=== PATIENT | male | born 1960 | race African-American/Black ===

== ENCOUNTER 2017-05-26 14:15 | Inpatient (IN) | payer MEDICARE, MEDICAID ==
[~2017-05-26] VITALS: Ht 188 cm; Wt 251.7 kg
[2017-05-26] MEDS: IPRATROPIUM/ALBUTEROL 0.5-3(2.5)MG/3ML NEB HHN SCH ×2 (05:15→19:50)
[~2017-05-26 14:15] MED LIST: ALLO300T2 PO; AMLO10TA80 PO; ASPI-1159 PO; CARV25TA47 PO; CHOL20004 PO; CLON0.3T PO; FLUT10SP BOTHNSTRLS; FURO40TA5 PO; GABA-290 PO; HYDR100T26 PO; HYDR4TAB56 PO; INSU3INS6 SUBCUT; ISOS20TA8 PO; LIRA0.6P2 SUBCUT; LOSA100T14 PO; MORP100T20 PO; POTA10TA15 PO; PRAZ5CAP PO; SIMV20TA6 PO
[2017-05-26 15:00] VITALS: BP 115/73
[2017-05-26 16:30] VITALS: BP 115/73
[2017-05-26] MEDS ORDERED: ONDANSETRON HCL 4MG/2ML VIAL IV PRN (16:45)
[2017-05-26] MEDS ORDERED: CLONIDINE 0.1MG TABLET PO PRN (16:45)
[2017-05-26] MEDS ORDERED: DEXTROSE 50% WATER 50ML SYRINGE IV PRN (16:45)
[2017-05-26] MEDS: INSULIN LISPRO 100 UNITS/ML SUBCUT SCH ×2 (17:00→21:00)
[2017-05-26] MEDS: ISOSORBIDE DINITRATE 20MG TABLET PO SCH (17:00)
[2017-05-26] MEDS: FUROSEMIDE 40MG/4ML VIAL IVP SCH (17:39)
[2017-05-26] MEDS: BLOOD SUGAR DIAGNOSTIC STRIP TEST SCH ×2 (17:39→21:36)
[2017-05-26] MEDS: POTASSIUM CHLORIDE 20MEQ TABLET SR PO SCH ×2 (17:39→21:00)
[2017-05-26] MEDS ORDERED: HYDROMORPHONE HCL/PF 4MG/ML CPJ IV PRN (18:00)
[2017-05-26] MEDS: METOCLOPRAMIDE HCL 10MG TABLET PO SCH ×2 (18:28→22:22)
[2017-05-26] MEDS: SIMETHICONE 80MG TABLET CHEW PO SCH (18:28)
[2017-05-26 20:00] VITALS: BP 138/66
[2017-05-26] MEDS: HYDROMORPHONE HCL 2MG TABLET PO PRN (20:13)
[2017-05-26] MEDS ORDERED: MORPHINE SULFATE 30MG TABLET SR PO SCH ×2 (21:00)
[2017-05-26] MEDS: MORPHINE SULFATE 30MG TABLET SR PO SCH (21:23)
[2017-05-26] MEDS: ATORVASTATIN CALCIUM 20MG TABLET PO SCH (21:24)
[2017-05-26] MEDS: CARVEDILOL 25MG TABLET PO SCH (21:24)
[2017-05-26] MEDS: FAMOTIDINE 20MG TABLET PO SCH (21:24)
[2017-05-26] MEDS: ENOXAPARIN 40MG/0.4ML SYR SUBCUT SCH (21:25)
[2017-05-26] MEDS: POLYETHYLENE GLYCOL 3350 (17GM) 1 DOSE PACK PO SCH (21:30)
[2017-05-26] MEDS ORDERED: METOCLOPRAMIDE HCL 10MG/2ML VIAL IV SCH (22:00)
[2017-05-26] MEDS: GABAPENTIN 300MG CAPSULE PO SCH (22:21)
[2017-05-26] MEDS: HYDRALAZINE HCL 100MG TABLET PO SCH (22:23)
[2017-05-27] MEDS: HYDROMORPHONE HCL 2MG TABLET PO PRN ×3 (01:59→17:47)
[2017-05-27] MEDS: GABAPENTIN 300MG CAPSULE PO SCH ×3 (06:28→21:25)
[2017-05-27] MEDS: HYDRALAZINE HCL 100MG TABLET PO SCH ×3 (06:28→21:55)
[2017-05-27] MEDS: MORPHINE SULFATE 30MG TABLET SR PO SCH ×3 (06:29→21:56)
[2017-05-27] MEDS: METOCLOPRAMIDE HCL 10MG TABLET PO SCH ×3 (06:29→21:26)
[2017-05-27] MEDS: BLOOD SUGAR DIAGNOSTIC STRIP TEST SCH ×4 (06:32→21:24)
[2017-05-27 06:44] LABS: BASOPHILS % 0.6 % (0.0-2.0); EOSINOPHILS % 2.6 % (0.0-5.0); HEMATOCRIT. 36.3 % (42.0-52.0); HEMOGLOBIN. 12.2 g/dL (14.0-18.0); LYMPHOCYTES % 17.1 % (20.0-50.0); MEAN CORPUSCULAR HEMOGLOBIN 30.2 pg (28.0-32.0); MEAN PLATELET VOLUME 7.4 fl (7.4-10.4); MONOCYTES % 10.2 % (2.0-8.0); NEUTROPHILS % 69.5 % (40.0-76.0); PLATELET 391 x1000/uL (130-400); RED BLOOD CELL COUNT 4.03 mill/uL (4.7-6.1); RED CELL DISTRIBUTION WIDTH 15.3 % (11.6-14.6)
[2017-05-27] MEDS: INSULIN LISPRO 100 UNITS/ML SUBCUT SCH ×4 (06:57→21:00)
[2017-05-27] MEDS: FUROSEMIDE 40MG/4ML VIAL IVP SCH ×2 (07:10→17:47)
[2017-05-27 07:42] LABS: CHLORIDE 99 mEq/L (98-107)
[2017-05-27] MEDS: IPRATROPIUM/ALBUTEROL 0.5-3(2.5)MG/3ML NEB HHN SCH ×6 (08:00→21:27)
[2017-05-27 08:43] VITALS: BP 154/72
[2017-05-27 08:50] LABS: CARBON DIOXIDE 25 mEq/L (21-32); PREALBUMIN 19.3 mg/dL (20.0-40.0)
[2017-05-27] MEDS: ALLOPURINOL 300 MG TABLET PO SCH (09:03)
[2017-05-27] MEDS: POTASSIUM CHLORIDE 20MEQ TABLET SR PO SCH ×2 (09:03→13:39)
[2017-05-27] MEDS: DOCUSATE SODIUM 100MG CAPSULE PO SCH ×2 (09:03→17:45)
[2017-05-27] MEDS: ENOXAPARIN 40MG/0.4ML SYR SUBCUT SCH ×2 (09:03→21:24)
[2017-05-27] MEDS: SIMETHICONE 80MG TABLET CHEW PO SCH ×4 (09:03→17:00)
[2017-05-27] MEDS: LOSARTAN POTASSIUM 100 MG TABLET PO SCH (09:04)
[2017-05-27] MEDS: NIFEDIPINE XL 60MG TAB PO SCH (09:04)
[2017-05-27] MEDS: ISOSORBIDE DINITRATE 20MG TABLET PO SCH ×3 (09:04→17:46)
[2017-05-27] MEDS: ASPIRIN 325MG EC TABLET PO SCH (09:04)
[2017-05-27] MEDS: FAMOTIDINE 20MG TABLET PO SCH ×2 (09:04→21:24)
[2017-05-27] MEDS: LIDOCAINE 5% PATCH TOP SCH (09:05)
[2017-05-27] MEDS: CARVEDILOL 25MG TABLET PO SCH ×2 (09:05→21:23)
[2017-05-27] MEDS: VITAMINS A AND D OINT TUBE TOP SCH (17:52)
[2017-05-27 20:14] VITALS: BP 104/61
[2017-05-27] MEDS: POLYETHYLENE GLYCOL 3350 (17GM) 1 DOSE PACK PO SCH (21:00)
[2017-05-27] MEDS: ATORVASTATIN CALCIUM 20MG TABLET PO SCH (21:24)
[2017-05-27] MEDS: PANTOT AC/MIN OIL/PET HY-PHL OINT 52.5GM (AQUAPHOR) TOP SCH (21:25)
[2017-05-28] MEDS: IPRATROPIUM/ALBUTEROL 0.5-3(2.5)MG/3ML NEB HHN SCH ×7 (04:00→20:00)
[2017-05-28] MEDS: HYDRALAZINE HCL 100MG TABLET PO SCH ×3 (06:00→22:00)
[2017-05-28] MEDS: FUROSEMIDE 40MG/4ML VIAL IVP SCH ×2 (06:25→17:02)
[2017-05-28] MEDS: BLOOD SUGAR DIAGNOSTIC STRIP TEST SCH ×4 (06:25→21:57)
[2017-05-28] MEDS: MORPHINE SULFATE 30MG TABLET SR PO SCH ×3 (06:25→22:32)
[2017-05-28] MEDS: METOCLOPRAMIDE HCL 10MG TABLET PO SCH ×3 (06:25→21:58)
[2017-05-28] MEDS: GABAPENTIN 300MG CAPSULE PO SCH ×3 (06:25→21:56)
[2017-05-28 06:32] LABS: BASOPHILS % 0.5 % (0.0-2.0); EOSINOPHILS % 2.5 % (0.0-5.0); HEMOGLOBIN. 12.4 g/dL (14.0-18.0); LYMPHOCYTES % 21.6 % (20.0-50.0); MEAN CORPUSCULAR HEMOGLOBIN 30.2 pg (28.0-32.0); MEAN CORPUSCULAR VOLUME 90.1 fL (80.0-94.0); MEAN PLATELET VOLUME 7.5 fl (7.4-10.4); MONOCYTES % 10.1 % (2.0-8.0); NEUTROPHILS % 65.3 % (40.0-76.0); PLATELET 375 x1000/uL (130-400); RED BLOOD CELL COUNT 4.11 mill/uL (4.7-6.1); RED CELL DISTRIBUTION WIDTH 15.2 % (11.6-14.6)
[2017-05-28 06:50] LABS: CHLORIDE 98 mEq/L (98-107)
[2017-05-28] MEDS: INSULIN LISPRO 100 UNITS/ML SUBCUT SCH ×4 (06:56→22:07)
[2017-05-28 07:06] LABS: CARBON DIOXIDE 29 mEq/L (21-32)
[2017-05-28 07:34] LABS: TOTAL IRON BINDING CAPACITY 204 ug/dL (250-450)
[2017-05-28 07:36] LABS: PHOSPHORUS 3.6 mg/dL (2.5-4.9)
[2017-05-28 08:00] VITALS: BP 136/68
[2017-05-28] MEDS ORDERED: POTASSIUM CHLORIDE 20MEQ TABLET SR PO SCH (09:00)
[2017-05-28] MEDS: DOCUSATE SODIUM 100MG CAPSULE PO SCH ×2 (10:05→17:01)
[2017-05-28] MEDS: CARVEDILOL 25MG TABLET PO SCH ×2 (10:06→21:57)
[2017-05-28] MEDS: SIMETHICONE 80MG TABLET CHEW PO SCH ×3 (10:06→16:26)
[2017-05-28] MEDS: POTASSIUM CHLORIDE 20MEQ TABLET SR PO SCH (10:06)
[2017-05-28] MEDS: FAMOTIDINE 20MG TABLET PO SCH ×2 (10:07→21:00)
[2017-05-28] MEDS: ISOSORBIDE DINITRATE 20MG TABLET PO SCH ×3 (10:07→17:02)
[2017-05-28] MEDS: NIFEDIPINE XL 60MG TAB PO SCH (10:07)
[2017-05-28] MEDS: ALLOPURINOL 300 MG TABLET PO SCH (10:07)
[2017-05-28] MEDS: ASPIRIN 325MG EC TABLET PO SCH (10:07)
[2017-05-28] MEDS: LOSARTAN POTASSIUM 100 MG TABLET PO SCH (10:07)
[2017-05-28] MEDS: PANTOT AC/MIN OIL/PET HY-PHL OINT 52.5GM (AQUAPHOR) TOP SCH ×2 (10:08→22:08)
[2017-05-28] MEDS: ENOXAPARIN 40MG/0.4ML SYR SUBCUT SCH ×2 (10:08→21:58)
[2017-05-28] MEDS: LIDOCAINE 5% PATCH TOP SCH (10:09)
[2017-05-28] MEDS: VITAMINS A AND D OINT TUBE TOP SCH ×3 (10:10→17:02)
[2017-05-28] MEDS: HYDROCODONE/ACETAMINOPHEN 5/325MG TABLET PO PRN (11:18)
[2017-05-28] MEDS: HYDROMORPHONE HCL 2MG TABLET PO PRN (19:06)
[2017-05-28 20:00] VITALS: BP 117/54
[2017-05-28] MEDS: POLYETHYLENE GLYCOL 3350 (17GM) 1 DOSE PACK PO SCH (21:00)
[2017-05-28] MEDS: ATORVASTATIN CALCIUM 20MG TABLET PO SCH (21:57)
[2017-05-28] MEDS: CLOTRIMAZOLE/BETAMETHASONE 1/0.05% CREAM 15GM TOP SCH (22:08)
[2017-05-29] MEDS: HYDROCODONE/ACETAMINOPHEN 5/325MG TABLET PO PRN ×3 (01:18→18:46)
[2017-05-29] MEDS: MORPHINE SULFATE 30MG TABLET SR PO SCH ×2 (05:00→15:01)
[2017-05-29] MEDS: HYDRALAZINE HCL 100MG TABLET PO SCH (06:00)
[2017-05-29] MEDS: METOCLOPRAMIDE HCL 10MG TABLET PO SCH ×3 (06:00→21:42)
[2017-05-29] MEDS: BLOOD SUGAR DIAGNOSTIC STRIP TEST SCH ×4 (06:20→21:47)
[2017-05-29 06:25] LABS: EOSINOPHILS % 3.3 % (0.0-5.0); HEMATOCRIT. 36.5 % (42.0-52.0); HEMOGLOBIN. 11.8 g/dL (14.0-18.0); LYMPHOCYTES % 22.9 % (20.0-50.0); MEAN CORPUSCULAR HEMOGLOBIN 29.4 pg (28.0-32.0); MEAN CORPUSCULAR VOLUME 90.8 fL (80.0-94.0); MEAN PLATELET VOLUME 7.6 fl (7.4-10.4); MONOCYTES % 13.4 % (2.0-8.0); NEUTROPHILS % 59.4 % (40.0-76.0); PLATELET 318 x1000/uL (130-400); RED BLOOD CELL COUNT 4.01 mill/uL (4.7-6.1); RED CELL DISTRIBUTION WIDTH 15.3 % (11.6-14.6)
[2017-05-29] MEDS: FUROSEMIDE 40MG/4ML VIAL IVP SCH ×2 (06:47→17:20)
[2017-05-29] MEDS: GABAPENTIN 300MG CAPSULE PO SCH (06:47)
[2017-05-29] MEDS: INSULIN LISPRO 100 UNITS/ML SUBCUT SCH ×4 (07:05→21:00)
[2017-05-29] MEDS: IPRATROPIUM/ALBUTEROL 0.5-3(2.5)MG/3ML NEB HHN SCH (07:50)
[2017-05-29 08:00] VITALS: BP 125/72
[2017-05-29] MEDS: CARVEDILOL 25MG TABLET PO SCH ×2 (08:19→21:00)
[2017-05-29] MEDS: DOCUSATE SODIUM 100MG CAPSULE PO SCH ×3 (08:19→16:10)
[2017-05-29] MEDS: LOSARTAN POTASSIUM 100 MG TABLET PO SCH (08:19)
[2017-05-29] MEDS: POTASSIUM CHLORIDE 20MEQ TABLET SR PO SCH ×2 (08:19→17:19)
[2017-05-29] MEDS: ALLOPURINOL 300 MG TABLET PO SCH (08:19)
[2017-05-29] MEDS: ENOXAPARIN 40MG/0.4ML SYR SUBCUT SCH ×2 (08:20→21:45)
[2017-05-29] MEDS: ASPIRIN 325MG EC TABLET PO SCH (08:20)
[2017-05-29] MEDS: HYDROMORPHONE HCL 2MG TABLET PO PRN (08:20)
[2017-05-29] MEDS: PANTOT AC/MIN OIL/PET HY-PHL OINT 52.5GM (AQUAPHOR) TOP SCH ×2 (08:21→21:51)
[2017-05-29] MEDS: VITAMINS A AND D OINT TUBE TOP SCH ×3 (08:21→17:20)
[2017-05-29] MEDS: LIDOCAINE 5% PATCH TOP SCH (08:21)
[2017-05-29] MEDS: CLOTRIMAZOLE/BETAMETHASONE 1/0.05% CREAM 15GM TOP SCH ×2 (08:21→21:51)
[2017-05-29 08:29] LABS: CHLORIDE 101 mEq/L (98-107)
[2017-05-29 08:37] LABS: CARBON DIOXIDE 23 mEq/L (21-32)
[2017-05-29] MEDS: ISOSORBIDE DINITRATE 20MG TABLET PO SCH ×3 (08:43→17:20)
[2017-05-29] MEDS: SIMETHICONE 80MG TABLET CHEW PO SCH (08:44)
[2017-05-29] MEDS: FAMOTIDINE 20MG TABLET PO SCH ×2 (08:44→21:41)
[2017-05-29] MEDS: NIFEDIPINE XL 60MG TAB PO SCH (08:44)
[2017-05-29] MEDS ORDERED: LACTULOSE 20G/30ML UDC PO SCH (10:03)
[2017-05-29] MEDS ORDERED: LACTULOSE 20G/30ML UDC PO PRN (11:15)
[2017-05-29] MEDS: NIFEDIPINE XL 30MG TAB PO SCH (11:49)
[2017-05-29] MEDS: GABAPENTIN 400MG CAPSULE PO SCH ×2 (15:00→21:41)
[2017-05-29] MEDS: HYDRALAZINE HCL 50MG TABLET PO SCH ×2 (15:01→22:00)
[2017-05-29 20:00] VITALS: BP 126/70
[2017-05-29] MEDS: POLYETHYLENE GLYCOL 3350 (17GM) 1 DOSE PACK PO SCH (21:00)
[2017-05-29] MEDS: ATORVASTATIN CALCIUM 20MG TABLET PO SCH (21:41)
[2017-05-30] MEDS: MORPHINE SULFATE 30MG TABLET SR PO SCH ×5 (00:47→21:14)
[2017-05-30] MEDS: HYDROCODONE/ACETAMINOPHEN 5/325MG TABLET PO PRN ×2 (04:23→10:59)
[2017-05-30] MEDS: HYDRALAZINE HCL 50MG TABLET PO SCH (06:00)
[2017-05-30] MEDS: BLOOD SUGAR DIAGNOSTIC STRIP TEST SCH ×4 (06:02→21:20)
[2017-05-30] MEDS: GABAPENTIN 400MG CAPSULE PO SCH ×3 (06:44→22:26)
[2017-05-30] MEDS: METOCLOPRAMIDE HCL 10MG TABLET PO SCH ×3 (06:44→22:26)
[2017-05-30] MEDS: FUROSEMIDE 40MG/4ML VIAL IVP SCH (06:45)
[2017-05-30 07:24] LABS: BASOPHILS % 0.4 % (0.0-2.0); EOSINOPHILS % 2.2 % (0.0-5.0); HEMATOCRIT. 37.9 % (42.0-52.0); HEMOGLOBIN. 12.5 g/dL (14.0-18.0); LYMPHOCYTES % 16.3 % (20.0-50.0); MEAN CORPUSCULAR HEMOGLOBIN 29.8 pg (28.0-32.0); MEAN PLATELET VOLUME 7.7 fl (7.4-10.4); MONOCYTES % 12.4 % (2.0-8.0); NEUTROPHILS % 68.7 % (40.0-76.0); PLATELET 301 x1000/uL (130-400); RED BLOOD CELL COUNT 4.21 mill/uL (4.7-6.1); RED CELL DISTRIBUTION WIDTH 15.4 % (11.6-14.6)
[2017-05-30] MEDS: INSULIN LISPRO 100 UNITS/ML SUBCUT SCH ×4 (07:44→21:00)
[2017-05-30 08:00] VITALS: BP 136/69
[2017-05-30] MEDS: DOCUSATE SODIUM 100MG CAPSULE PO SCH ×2 (09:00→16:31)
[2017-05-30] MEDS: LIDOCAINE 5% PATCH TOP SCH ×2 (09:00→10:52)
[2017-05-30] MEDS: FAMOTIDINE 20MG TABLET PO SCH ×3 (09:00→21:14)
[2017-05-30 09:03] LABS: CHLORIDE 98 mEq/L (98-107)
[2017-05-30] MEDS: POTASSIUM CHLORIDE 20MEQ TABLET SR PO SCH ×2 (10:49→16:31)
[2017-05-30] MEDS: ASPIRIN 325MG EC TABLET PO SCH (10:49)
[2017-05-30] MEDS: NIFEDIPINE XL 30MG TAB PO SCH (10:49)
[2017-05-30] MEDS: CARVEDILOL 25MG TABLET PO SCH (10:49)
[2017-05-30 10:50] LABS: CARBON DIOXIDE 26 mEq/L (21-32)
[2017-05-30] MEDS: LOSARTAN POTASSIUM 100 MG TABLET PO SCH (10:50)
[2017-05-30] MEDS: ISOSORBIDE DINITRATE 20MG TABLET PO SCH ×3 (10:50→22:28)
[2017-05-30] MEDS: ALLOPURINOL 300 MG TABLET PO SCH (10:50)
[2017-05-30] MEDS: ENOXAPARIN 40MG/0.4ML SYR SUBCUT SCH ×2 (10:51→21:15)
[2017-05-30] MEDS: PANTOT AC/MIN OIL/PET HY-PHL OINT 52.5GM (AQUAPHOR) TOP SCH ×2 (10:52→21:22)
[2017-05-30] MEDS: CLOTRIMAZOLE/BETAMETHASONE 1/0.05% CREAM 15GM TOP SCH ×2 (10:52→21:22)
[2017-05-30] MEDS: VITAMINS A AND D OINT TUBE TOP SCH ×3 (10:59→16:31)
[2017-05-30] MEDS ORDERED: CLONIDINE 0.1MG TABLET PO PRN (13:30)
[2017-05-30] MEDS: HYDRALAZINE HCL 25MG TABLET PO SCH ×2 (14:00→22:27)
[2017-05-30] MEDS ORDERED: HYDRALAZINE HCL 50MG TABLET PO SCH (14:00)
[2017-05-30] MEDS: LACTULOSE 20G/30ML UDC PO SCH ×2 (16:31→21:15)
[2017-05-30 20:00] VITALS: BP 107/66
[2017-05-30 20:26] LABS: FOLIC ACID (FOLATE) SERUM 8.3 ng/mL (>5.38)
[2017-05-30] MEDS: ATORVASTATIN CALCIUM 20MG TABLET PO SCH (21:14)
[2017-05-30] MEDS: POLYETHYLENE GLYCOL 3350 (17GM) 1 DOSE PACK PO SCH (21:15)
[2017-05-30] MEDS: CARVEDILOL 12.5MG TABLET PO SCH (22:28)
[2017-05-31] MEDS: HYDROCODONE/ACETAMINOPHEN 5/325MG TABLET PO PRN ×2 (02:15→10:37)
[2017-05-31] MEDS: MORPHINE SULFATE 30MG TABLET SR PO SCH ×2 (05:33→14:37)
[2017-05-31] MEDS: METOCLOPRAMIDE HCL 10MG TABLET PO SCH ×3 (05:33→22:00)
[2017-05-31] MEDS: HYDRALAZINE HCL 25MG TABLET PO SCH ×3 (06:00→22:13)
[2017-05-31] MEDS: BLOOD SUGAR DIAGNOSTIC STRIP TEST SCH ×4 (06:35→21:00)
[2017-05-31] MEDS: INSULIN LISPRO 100 UNITS/ML SUBCUT SCH ×4 (06:36→21:00)
[2017-05-31] MEDS: GABAPENTIN 400MG CAPSULE PO SCH ×3 (06:42→22:12)
[2017-05-31 07:21] LABS: BASOPHILS % 0.8 % (0.0-2.0); HEMATOCRIT. 36.8 % (42.0-52.0); HEMOGLOBIN. 12.1 g/dL (14.0-18.0); LYMPHOCYTES % 21.4 % (20.0-50.0); MEAN CORPUSCULAR VOLUME 90.9 fL (80.0-94.0); MEAN PLATELET VOLUME 8.4 fl (7.4-10.4); MONOCYTES % 13.1 % (2.0-8.0); NEUTROPHILS % 62.7 % (40.0-76.0); PLATELET 278 x1000/uL (130-400); RED BLOOD CELL COUNT 4.05 mill/uL (4.7-6.1); RED CELL DISTRIBUTION WIDTH 15.5 % (11.6-14.6)
[2017-05-31 08:00] VITALS: BP 118/70
[2017-05-31 08:38] LABS: CARBON DIOXIDE 26 mEq/L (21-32); CHLORIDE 97 mEq/L (98-107)
[2017-05-31] MEDS ORDERED: AMLODIPINE 5MG TABLET PO SCH (09:00)
[2017-05-31] MEDS: FAMOTIDINE 20MG TABLET PO SCH ×3 (09:16→22:13)
[2017-05-31] MEDS: ASPIRIN 325MG EC TABLET PO SCH (09:16)
[2017-05-31] MEDS: LACTULOSE 20G/30ML UDC PO SCH ×6 (09:16→21:00)
[2017-05-31] MEDS: POTASSIUM CHLORIDE 20MEQ TABLET SR PO SCH (09:16)
[2017-05-31] MEDS: ENOXAPARIN 40MG/0.4ML SYR SUBCUT SCH ×2 (09:16→22:14)
[2017-05-31] MEDS: DOCUSATE SODIUM 100MG CAPSULE PO SCH ×2 (09:16→17:23)
[2017-05-31] MEDS: VITAMINS A AND D OINT TUBE TOP SCH ×3 (09:17→17:23)
[2017-05-31] MEDS: LIDOCAINE 5% PATCH TOP SCH (09:17)
[2017-05-31] MEDS: PANTOT AC/MIN OIL/PET HY-PHL OINT 52.5GM (AQUAPHOR) TOP SCH ×2 (09:17→22:29)
[2017-05-31] MEDS: ALLOPURINOL 300 MG TABLET PO SCH (09:18)
[2017-05-31] MEDS: CLOTRIMAZOLE/BETAMETHASONE 1/0.05% CREAM 15GM TOP SCH ×2 (09:18→22:30)
[2017-05-31] MEDS: LOSARTAN POTASSIUM 50 MG TABLET PO SCH (09:19)
[2017-05-31] MEDS: ISOSORBIDE DINITRATE 20MG TABLET PO SCH ×2 (09:19→22:13)
[2017-05-31] MEDS: CARVEDILOL 12.5MG TABLET PO SCH ×2 (09:19→22:12)
[2017-05-31] MEDS ORDERED: BISACODYL 10MG SUPP PR PRN (15:00)
[2017-05-31] MEDS ORDERED: CYANOCOBALAMIN 1000MCG/ML VIAL IM NR (15:30)
[2017-05-31] MEDS ORDERED: SORBITOL 70% SOLN 30ML PO NR (16:30)
[2017-05-31 20:00] VITALS: BP 123/66
[2017-05-31] MEDS: POLYETHYLENE GLYCOL 3350 (17GM) 1 DOSE PACK PO SCH (21:00)
[2017-05-31] MEDS: ATORVASTATIN CALCIUM 20MG TABLET PO SCH (22:12)
[2017-06-01] MEDS: HYDROCODONE/ACETAMINOPHEN 5/325MG TABLET PO PRN ×4 (01:34→20:17)
[2017-06-01] MEDS: GABAPENTIN 400MG CAPSULE PO SCH ×3 (05:53→22:19)
[2017-06-01] MEDS: MORPHINE SULFATE 30MG TABLET SR PO SCH ×3 (05:54→22:20)
[2017-06-01] MEDS: HYDRALAZINE HCL 25MG TABLET PO SCH ×2 (05:54→13:39)
[2017-06-01] MEDS: METOCLOPRAMIDE HCL 10MG TABLET PO SCH ×4 (05:56→22:00)
[2017-06-01] MEDS ORDERED: MORPHINE SULFATE 30MG TABLET SR PO SCH (06:00)
[2017-06-01] MEDS: BLOOD SUGAR DIAGNOSTIC STRIP TEST SCH ×4 (06:19→20:23)
[2017-06-01] MEDS: INSULIN LISPRO 100 UNITS/ML SUBCUT SCH ×4 (06:32→20:28)
[2017-06-01 06:56] LABS: BASOPHILS % 1.2 % (0.0-2.0); HEMATOCRIT. 37.9 % (42.0-52.0); HEMOGLOBIN. 12.5 g/dL (14.0-18.0); LYMPHOCYTES % 31.2 % (20.0-50.0); MEAN CORPUSCULAR HEMOGLOBIN 29.9 pg (28.0-32.0); MEAN CORPUSCULAR VOLUME 90.9 fL (80.0-94.0); MEAN PLATELET VOLUME 8.2 fl (7.4-10.4); MONOCYTES % 12.2 % (2.0-8.0); NEUTROPHILS % 52.4 % (40.0-76.0); PLATELET 293 x1000/uL (130-400); RED BLOOD CELL COUNT 4.17 mill/uL (4.7-6.1); RED CELL DISTRIBUTION WIDTH 15.5 % (11.6-14.6)
[2017-06-01 07:07] LABS: CARBON DIOXIDE 26 mEq/L (21-32); CHLORIDE 96 mEq/L (98-107)
[2017-06-01 08:00] VITALS: BP 132/74
[2017-06-01] MEDS: ENOXAPARIN 40MG/0.4ML SYR SUBCUT SCH ×2 (08:47→20:17)
[2017-06-01] MEDS: ALLOPURINOL 300 MG TABLET PO SCH (08:47)
[2017-06-01] MEDS: ASPIRIN 325MG EC TABLET PO SCH (08:48)
[2017-06-01] MEDS: LOSARTAN POTASSIUM 50 MG TABLET PO SCH (08:48)
[2017-06-01] MEDS: CARVEDILOL 12.5MG TABLET PO SCH (08:49)
[2017-06-01] MEDS: ISOSORBIDE DINITRATE 20MG TABLET PO SCH ×2 (08:50→20:17)
[2017-06-01] MEDS: VITAMINS A AND D OINT TUBE TOP SCH ×3 (08:52→16:14)
[2017-06-01] MEDS: PANTOT AC/MIN OIL/PET HY-PHL OINT 52.5GM (AQUAPHOR) TOP SCH ×2 (08:52→20:28)
[2017-06-01] MEDS: CLOTRIMAZOLE/BETAMETHASONE 1/0.05% CREAM 15GM TOP SCH ×2 (08:53→20:28)
[2017-06-01] MEDS: FAMOTIDINE 20MG TABLET PO SCH ×2 (08:54→20:18)
[2017-06-01] MEDS: LIDOCAINE 5% PATCH TOP SCH (08:54)
[2017-06-01] MEDS: DOCUSATE SODIUM 100MG CAPSULE PO SCH ×2 (08:54→16:14)
[2017-06-01 10:20] VITALS: BP 96/57
[2017-06-01 10:22] VITALS: BP 84/57
[2017-06-01] MEDS: HYDRALAZINE HCL 10MG TABLET PO SCH ×2 (14:00→22:20)
[2017-06-01 18:37] VITALS: BP 119/70
[2017-06-01 18:41] VITALS: BP 107/69
[2017-06-01 20:00] VITALS: BP_SYST 113; BP_SYST 138; BP_DIAS 70; BP_DIAS 71
[2017-06-01] MEDS: CARVEDILOL 6.25 MG TABLET PO SCH (20:18)
[2017-06-01] MEDS: ATORVASTATIN CALCIUM 20MG TABLET PO SCH (20:18)
[2017-06-01] MEDS: POLYETHYLENE GLYCOL 3350 (17GM) 1 DOSE PACK PO SCH (20:18)
[2017-06-02] MEDS: HYDROCODONE/ACETAMINOPHEN 5/325MG TABLET PO PRN ×3 (02:14→19:39)
[2017-06-02] MEDS: METOCLOPRAMIDE HCL 10MG TABLET PO SCH ×3 (06:00→23:37)
[2017-06-02] MEDS: HYDRALAZINE HCL 10MG TABLET PO SCH ×3 (06:20→23:36)
[2017-06-02] MEDS: GABAPENTIN 400MG CAPSULE PO SCH ×3 (06:21→23:37)
[2017-06-02] MEDS: MORPHINE SULFATE 30MG TABLET SR PO SCH ×3 (06:21→23:36)
[2017-06-02] MEDS: BLOOD SUGAR DIAGNOSTIC STRIP TEST SCH ×4 (06:25→20:32)
[2017-06-02] MEDS: INSULIN LISPRO 100 UNITS/ML SUBCUT SCH ×4 (06:43→20:31)
[2017-06-02 08:00] VITALS: BP 119/64
[2017-06-02] MEDS: LIDOCAINE 5% PATCH TOP SCH (09:00)
[2017-06-02] MEDS: FAMOTIDINE 20MG TABLET PO SCH ×2 (09:00→20:31)
[2017-06-02] MEDS: CARVEDILOL 6.25 MG TABLET PO SCH ×2 (09:09→20:30)
[2017-06-02] MEDS: ALLOPURINOL 300 MG TABLET PO SCH (09:09)
[2017-06-02] MEDS: ASPIRIN 325MG EC TABLET PO SCH (09:10)
[2017-06-02] MEDS: ISOSORBIDE DINITRATE 20MG TABLET PO SCH ×2 (09:11→20:30)
[2017-06-02] MEDS: LOSARTAN POTASSIUM 25 MG TABLET PO SCH (09:11)
[2017-06-02] MEDS: ENOXAPARIN 40MG/0.4ML SYR SUBCUT SCH ×2 (09:12→20:32)
[2017-06-02] MEDS: CLOTRIMAZOLE/BETAMETHASONE 1/0.05% CREAM 15GM TOP SCH ×2 (09:16→20:36)
[2017-06-02] MEDS: PANTOT AC/MIN OIL/PET HY-PHL OINT 52.5GM (AQUAPHOR) TOP SCH ×2 (09:16→20:36)
[2017-06-02] MEDS: VITAMINS A AND D OINT TUBE TOP SCH ×3 (09:17→17:06)
[2017-06-02 20:00] VITALS: BP 114/64
[2017-06-02] MEDS: ATORVASTATIN CALCIUM 20MG TABLET PO SCH (20:30)
[2017-06-03] MEDS: HYDRALAZINE HCL 10MG TABLET PO SCH ×3 (05:10→22:00)
[2017-06-03] MEDS: METOCLOPRAMIDE HCL 10MG TABLET PO SCH ×4 (05:11→23:48)
[2017-06-03] MEDS: GABAPENTIN 400MG CAPSULE PO SCH ×3 (05:11→23:44)
[2017-06-03] MEDS: BLOOD SUGAR DIAGNOSTIC STRIP TEST SCH ×4 (05:11→21:00)
[2017-06-03] MEDS: INSULIN LISPRO 100 UNITS/ML SUBCUT SCH ×3 (05:11→17:00)
[2017-06-03] MEDS: MORPHINE SULFATE 30MG TABLET SR PO SCH ×3 (05:11→23:43)
[2017-06-03 08:00] VITALS: BP 138/62
[2017-06-03] MEDS: LIDOCAINE 5% PATCH TOP SCH (09:00)
[2017-06-03] MEDS: FAMOTIDINE 20MG TABLET PO SCH ×2 (09:00→23:46)
[2017-06-03] MEDS: HYDROCODONE/ACETAMINOPHEN 5/325MG TABLET PO PRN ×2 (11:59→19:46)
[2017-06-03] MEDS: PANTOT AC/MIN OIL/PET HY-PHL OINT 52.5GM (AQUAPHOR) TOP SCH ×2 (12:46→23:54)
[2017-06-03] MEDS: CLOTRIMAZOLE/BETAMETHASONE 1/0.05% CREAM 15GM TOP SCH (12:46)
[2017-06-03] MEDS: VITAMINS A AND D OINT TUBE TOP SCH ×3 (12:47→17:25)
[2017-06-03] MEDS: LOSARTAN POTASSIUM 25 MG TABLET PO SCH (12:48)
[2017-06-03] MEDS: ENOXAPARIN 40MG/0.4ML SYR SUBCUT SCH ×2 (12:48→23:56)
[2017-06-03] MEDS: CARVEDILOL 6.25 MG TABLET PO SCH ×2 (12:49→23:47)
[2017-06-03] MEDS: ISOSORBIDE DINITRATE 20MG TABLET PO SCH ×2 (12:50→23:46)
[2017-06-03] MEDS: ALLOPURINOL 300 MG TABLET PO SCH (12:50)
[2017-06-03] MEDS: ASPIRIN 325MG EC TABLET PO SCH (12:55)
[2017-06-03 20:00] VITALS: BP 137/70
[2017-06-03] MEDS ORDERED: MAGNESIUM/ALUMINUM HYDROXIDE/SIMETHICONE 30ML UDC PO PRN (20:45)
[2017-06-03] MEDS: POLYETHYLENE GLYCOL 3350 (17GM) 1 DOSE PACK PO SCH (21:00)
[2017-06-03] MEDS ORDERED: ONDANSETRON 4MG ODT PO PRN (22:45)
[2017-06-03] MEDS: ATORVASTATIN CALCIUM 20MG TABLET PO SCH (23:42)
[2017-06-04] MEDS: CLOTRIMAZOLE/BETAMETHASONE 1/0.05% CREAM 15GM TOP SCH ×3 (00:17→21:46)
[2017-06-04] MEDS: INSULIN LISPRO 100 UNITS/ML SUBCUT SCH ×5 (00:24→21:46)
[2017-06-04] MEDS: HYDROMORPHONE HCL/PF 2MG/ML CPJ IV PRN (01:36)
[2017-06-04] MEDS: HYDRALAZINE HCL 10MG TABLET PO SCH ×3 (06:00→22:51)
[2017-06-04] MEDS: GABAPENTIN 400MG CAPSULE PO SCH ×3 (06:52→21:39)
[2017-06-04] MEDS: MORPHINE SULFATE 30MG TABLET SR PO SCH ×3 (06:54→21:39)
[2017-06-04] MEDS: METOCLOPRAMIDE HCL 10MG TABLET PO SCH ×3 (06:55→21:41)
[2017-06-04] MEDS: BLOOD SUGAR DIAGNOSTIC STRIP TEST SCH ×4 (06:58→21:46)
[2017-06-04 07:28] LABS: HEMOGLOBIN. 10.8 g/dL (14.0-18.0); MEAN CORPUSCULAR VOLUME 89.3 fL (80.0-94.0); MEAN PLATELET VOLUME 8.1 fl (7.4-10.4); PLATELET 301 x1000/uL (130-400); RED BLOOD CELL COUNT 3.59 mill/uL (4.7-6.1); RED CELL DISTRIBUTION WIDTH 15.3 % (11.6-14.6)
[2017-06-04 07:36] LABS: CARBON DIOXIDE 29 mEq/L (21-32); CHLORIDE 100 mEq/L (98-107)
[2017-06-04 08:00] VITALS: BP 133/72
[2017-06-04] MEDS: LIDOCAINE 5% PATCH TOP SCH (09:00)
[2017-06-04] MEDS: ENOXAPARIN 40MG/0.4ML SYR SUBCUT SCH ×2 (10:28→21:42)
[2017-06-04] MEDS: FAMOTIDINE 20MG TABLET PO SCH ×2 (10:29→21:41)
[2017-06-04] MEDS: DOCUSATE SODIUM 250MG CAPSULE PO SCH ×2 (10:29→17:55)
[2017-06-04] MEDS: ASPIRIN 325MG EC TABLET PO SCH (10:30)
[2017-06-04] MEDS: ALLOPURINOL 300 MG TABLET PO SCH (10:30)
[2017-06-04] MEDS: ISOSORBIDE DINITRATE 20MG TABLET PO SCH ×2 (10:30→20:20)
[2017-06-04] MEDS: CARVEDILOL 6.25 MG TABLET PO SCH ×2 (10:30→20:19)
[2017-06-04] MEDS: LOSARTAN POTASSIUM 25 MG TABLET PO SCH (10:34)
[2017-06-04] MEDS: PANTOT AC/MIN OIL/PET HY-PHL OINT 52.5GM (AQUAPHOR) TOP SCH ×2 (10:44→21:46)
[2017-06-04 11:22] LABS: PLATELET ESTIMATE NORMAL
[2017-06-04 13:06] LABS: 25-HYDROXY VITAMIN D3 31 ng/mL (.)
[2017-06-04] MEDS: VITAMINS A AND D OINT TUBE TOP SCH ×3 (13:27→16:51)
[2017-06-04 20:00] VITALS: BP 101/59
[2017-06-04] MEDS: POLYETHYLENE GLYCOL 3350 (17GM) 1 DOSE PACK PO SCH (21:00)
[2017-06-04] MEDS: ATORVASTATIN CALCIUM 20MG TABLET PO SCH (21:41)
[2017-06-05] MEDS: HYDROCODONE/ACETAMINOPHEN 5/325MG TABLET PO PRN ×2 (02:40→16:57)
[2017-06-05] MEDS: METOCLOPRAMIDE HCL 10MG TABLET PO SCH ×3 (06:23→21:57)
[2017-06-05] MEDS: MORPHINE SULFATE 30MG TABLET SR PO SCH ×3 (06:24→21:58)
[2017-06-05] MEDS: GABAPENTIN 400MG CAPSULE PO SCH ×3 (06:24→21:55)
[2017-06-05] MEDS: BLOOD SUGAR DIAGNOSTIC STRIP TEST SCH ×4 (06:24→21:00)
[2017-06-05] MEDS: INSULIN LISPRO 100 UNITS/ML SUBCUT SCH ×4 (06:34→22:12)
[2017-06-05] MEDS: HYDRALAZINE HCL 10MG TABLET PO SCH ×3 (07:04→22:00)
[2017-06-05 08:00] VITALS: BP 142/70
[2017-06-05] MEDS: LACTULOSE 20G/30ML UDC PO SCH ×3 (08:16→13:00)
[2017-06-05] MEDS: LIDOCAINE 5% PATCH TOP SCH (09:00)
[2017-06-05] MEDS: ALLOPURINOL 300 MG TABLET PO SCH (09:14)
[2017-06-05] MEDS: FAMOTIDINE 20MG TABLET PO SCH ×2 (09:14→21:55)
[2017-06-05] MEDS: LOSARTAN POTASSIUM 25 MG TABLET PO SCH (09:14)
[2017-06-05] MEDS: DOCUSATE SODIUM 250MG CAPSULE PO SCH ×2 (09:14→16:56)
[2017-06-05] MEDS: ASPIRIN 325MG EC TABLET PO SCH (09:14)
[2017-06-05] MEDS: CARVEDILOL 6.25 MG TABLET PO SCH ×2 (09:14→21:57)
[2017-06-05] MEDS: ISOSORBIDE DINITRATE 20MG TABLET PO SCH ×2 (09:15→21:58)
[2017-06-05] MEDS: PANTOT AC/MIN OIL/PET HY-PHL OINT 52.5GM (AQUAPHOR) TOP SCH ×2 (09:18→21:55)
[2017-06-05] MEDS: CLOTRIMAZOLE/BETAMETHASONE 1/0.05% CREAM 15GM TOP SCH ×2 (09:19→21:55)
[2017-06-05] MEDS: VITAMINS A AND D OINT TUBE TOP SCH ×3 (09:19→16:56)
[2017-06-05] MEDS: ENOXAPARIN 40MG/0.4ML SYR SUBCUT SCH ×2 (09:20→22:03)
[2017-06-05 13:00] VITALS: BP 108/79
[2017-06-05 19:47] VITALS: BP 138/69
[2017-06-05] MEDS: POLYETHYLENE GLYCOL 3350 (17GM) 1 DOSE PACK PO SCH (21:00)
[2017-06-05] MEDS: ATORVASTATIN CALCIUM 20MG TABLET PO SCH (21:56)
[2017-06-06] MEDS: HYDROCODONE/ACETAMINOPHEN 5/325MG TABLET PO PRN ×2 (01:18→12:00)
[2017-06-06] MEDS: MORPHINE SULFATE 30MG TABLET SR PO SCH ×3 (05:01→20:43)
[2017-06-06] MEDS: GABAPENTIN 400MG CAPSULE PO SCH ×3 (05:02→22:38)
[2017-06-06] MEDS: METOCLOPRAMIDE HCL 10MG TABLET PO SCH ×3 (05:02→22:38)
[2017-06-06] MEDS: HYDRALAZINE HCL 10MG TABLET PO SCH ×3 (06:00→22:38)
[2017-06-06] MEDS: BLOOD SUGAR DIAGNOSTIC STRIP TEST SCH ×4 (06:28→21:00)
[2017-06-06] MEDS: INSULIN LISPRO 100 UNITS/ML SUBCUT SCH ×4 (06:28→21:00)
[2017-06-06 08:35] VITALS: BP 160/76
[2017-06-06] MEDS: LIDOCAINE 5% PATCH TOP SCH (09:00)
[2017-06-06] MEDS: ENOXAPARIN 40MG/0.4ML SYR SUBCUT SCH ×2 (09:33→20:49)
[2017-06-06] MEDS: FAMOTIDINE 20MG TABLET PO SCH ×2 (09:34→20:40)
[2017-06-06] MEDS: DOCUSATE SODIUM 250MG CAPSULE PO SCH ×2 (09:34→16:36)
[2017-06-06] MEDS: ASPIRIN 325MG EC TABLET PO SCH (09:35)
[2017-06-06] MEDS: CARVEDILOL 6.25 MG TABLET PO SCH ×2 (09:36→21:00)
[2017-06-06] MEDS: LOSARTAN POTASSIUM 25 MG TABLET PO SCH (09:37)
[2017-06-06] MEDS: ALLOPURINOL 300 MG TABLET PO SCH (09:37)
[2017-06-06] MEDS: CLOTRIMAZOLE/BETAMETHASONE 1/0.05% CREAM 15GM TOP SCH ×2 (09:40→22:38)
[2017-06-06] MEDS: PANTOT AC/MIN OIL/PET HY-PHL OINT 52.5GM (AQUAPHOR) TOP SCH ×2 (09:40→22:39)
[2017-06-06] MEDS: VITAMINS A AND D OINT TUBE TOP SCH ×3 (09:40→16:36)
[2017-06-06] MEDS: ISOSORBIDE DINITRATE 20MG TABLET PO SCH ×2 (09:49→21:00)
[2017-06-06] MEDS: HYDROMORPHONE HCL/PF 2MG/ML CPJ IV PRN ×2 (17:16→23:32)
[2017-06-06 20:00] VITALS: BP 104/69
[2017-06-06] MEDS: ATORVASTATIN CALCIUM 20MG TABLET PO SCH (20:40)
[2017-06-06] MEDS: POLYETHYLENE GLYCOL 3350 (17GM) 1 DOSE PACK PO SCH (21:00)
[2017-06-07] MEDS: BLOOD SUGAR DIAGNOSTIC STRIP TEST SCH ×4 (05:47→21:07)
[2017-06-07] MEDS: INSULIN LISPRO 100 UNITS/ML SUBCUT SCH ×4 (05:47→21:11)
[2017-06-07] MEDS: GABAPENTIN 400MG CAPSULE PO SCH ×3 (05:48→20:57)
[2017-06-07] MEDS: METOCLOPRAMIDE HCL 10MG TABLET PO SCH ×3 (05:48→21:00)
[2017-06-07] MEDS: MORPHINE SULFATE 30MG TABLET SR PO SCH ×3 (05:49→20:56)
[2017-06-07] MEDS: HYDRALAZINE HCL 10MG TABLET PO SCH ×3 (06:00→22:00)
[2017-06-07 08:00] VITALS: BP 118/59
[2017-06-07] MEDS: FAMOTIDINE 20MG TABLET PO SCH ×2 (09:00→20:59)
[2017-06-07] MEDS: LIDOCAINE 5% PATCH TOP SCH (09:00)
[2017-06-07] MEDS: DOCUSATE SODIUM 250MG CAPSULE PO SCH ×2 (09:00→16:47)
[2017-06-07] MEDS: LOSARTAN POTASSIUM 25 MG TABLET PO SCH (10:10)
[2017-06-07] MEDS: ALLOPURINOL 300 MG TABLET PO SCH (10:11)
[2017-06-07] MEDS: CARVEDILOL 6.25 MG TABLET PO SCH ×2 (10:11→21:00)
[2017-06-07] MEDS: ASPIRIN 325MG EC TABLET PO SCH (10:11)
[2017-06-07] MEDS: ISOSORBIDE DINITRATE 20MG TABLET PO SCH ×2 (10:12→20:58)
[2017-06-07] MEDS: CLOTRIMAZOLE/BETAMETHASONE 1/0.05% CREAM 15GM TOP SCH ×2 (10:14→21:08)
[2017-06-07] MEDS: VITAMINS A AND D OINT TUBE TOP SCH ×3 (10:14→17:12)
[2017-06-07] MEDS: PANTOT AC/MIN OIL/PET HY-PHL OINT 52.5GM (AQUAPHOR) TOP SCH ×2 (10:14→21:08)
[2017-06-07] MEDS: ENOXAPARIN 40MG/0.4ML SYR SUBCUT SCH ×2 (10:15→21:07)
[2017-06-07] MEDS: HYDROCODONE/ACETAMINOPHEN 5/325MG TABLET PO PRN (11:23)
[2017-06-07] MEDS: HYDROMORPHONE HCL/PF 2MG/ML CPJ IV PRN ×3 (11:33→23:11)
[2017-06-07 20:00] VITALS: BP 139/69
[2017-06-07] MEDS: ATORVASTATIN CALCIUM 20MG TABLET PO SCH (20:59)
[2017-06-07] MEDS: POLYETHYLENE GLYCOL 3350 (17GM) 1 DOSE PACK PO SCH (21:00)
[2017-06-08] MEDS: METOCLOPRAMIDE HCL 10MG TABLET PO SCH ×3 (05:41→21:30)
[2017-06-08] MEDS: GABAPENTIN 400MG CAPSULE PO SCH ×3 (05:41→21:30)
[2017-06-08] MEDS: BLOOD SUGAR DIAGNOSTIC STRIP TEST SCH ×4 (05:41→21:31)
[2017-06-08] MEDS: MORPHINE SULFATE 30MG TABLET SR PO SCH ×3 (05:42→21:31)
[2017-06-08] MEDS: HYDRALAZINE HCL 10MG TABLET PO SCH ×3 (05:54→22:52)
[2017-06-08] MEDS: INSULIN LISPRO 100 UNITS/ML SUBCUT SCH ×4 (06:05→21:00)
[2017-06-08 06:21] LABS: HEMATOCRIT. 32.9 % (42.0-52.0); HEMOGLOBIN. 10.9 g/dL (14.0-18.0); MEAN CORPUSCULAR HEMOGLOBIN 29.9 pg (28.0-32.0); MEAN CORPUSCULAR VOLUME 90.1 fL (80.0-94.0); MEAN PLATELET VOLUME 7.6 fl (7.4-10.4); PLATELET 288 x1000/uL (130-400); RED BLOOD CELL COUNT 3.65 mill/uL (4.7-6.1); RED CELL DISTRIBUTION WIDTH 15.2 % (11.6-14.6)
[2017-06-08 08:00] VITALS: BP 138/73
[2017-06-08] MEDS: HYDROMORPHONE HCL/PF 2MG/ML CPJ IV PRN ×2 (08:50→17:14)
[2017-06-08 08:54] LABS: CARBON DIOXIDE 27 mEq/L (21-32); CHLORIDE 103 mEq/L (98-107)
[2017-06-08] MEDS: FAMOTIDINE 20MG TABLET PO SCH ×2 (09:00→21:30)
[2017-06-08] MEDS: LIDOCAINE 5% PATCH TOP SCH (09:00)
[2017-06-08] MEDS: CLOTRIMAZOLE/BETAMETHASONE 1/0.05% CREAM 15GM TOP SCH ×2 (10:04→21:32)
[2017-06-08] MEDS: VITAMINS A AND D OINT TUBE TOP SCH ×3 (10:04→17:15)
[2017-06-08] MEDS: PANTOT AC/MIN OIL/PET HY-PHL OINT 52.5GM (AQUAPHOR) TOP SCH ×2 (10:04→21:32)
[2017-06-08] MEDS: DOCUSATE SODIUM 250MG CAPSULE PO SCH ×2 (10:08→16:15)
[2017-06-08] MEDS: ASPIRIN 325MG EC TABLET PO SCH (10:08)
[2017-06-08] MEDS: CARVEDILOL 6.25 MG TABLET PO SCH ×2 (10:09→22:51)
[2017-06-08] MEDS: ALLOPURINOL 300 MG TABLET PO SCH (10:09)
[2017-06-08] MEDS: ISOSORBIDE DINITRATE 20MG TABLET PO SCH ×2 (10:09→21:00)
[2017-06-08] MEDS: LOSARTAN POTASSIUM 25 MG TABLET PO SCH (10:09)
[2017-06-08] MEDS: ENOXAPARIN 40MG/0.4ML SYR SUBCUT SCH ×2 (10:11→21:29)
[2017-06-08 12:38] LABS: PLATELET ESTIMATE NORMAL
[2017-06-08] MEDS: POTASSIUM CHLORIDE 20MEQ TABLET SR PO SCH (17:13)
[2017-06-08] MEDS: FUROSEMIDE 40MG TABLET PO SCH (17:13)
[2017-06-08 20:00] VITALS: BP 128/57
[2017-06-08] MEDS: POLYETHYLENE GLYCOL 3350 (17GM) 1 DOSE PACK PO SCH (21:00)
[2017-06-08] MEDS: ATORVASTATIN CALCIUM 20MG TABLET PO SCH (21:29)
[2017-06-09] MEDS: HYDROMORPHONE HCL/PF 2MG/ML CPJ IV PRN ×4 (00:48→22:53)
[2017-06-09 05:39] LABS: HEMATOCRIT. 32.4 % (42.0-52.0); HEMOGLOBIN. 10.8 g/dL (14.0-18.0); MEAN CORPUSCULAR HEMOGLOBIN 30.2 pg (28.0-32.0); MEAN CORPUSCULAR VOLUME 90.7 fL (80.0-94.0); MEAN PLATELET VOLUME 7.3 fl (7.4-10.4); PLATELET 257 x1000/uL (130-400); RED BLOOD CELL COUNT 3.58 mill/uL (4.7-6.1); RED CELL DISTRIBUTION WIDTH 15.7 % (11.6-14.6)
[2017-06-09] MEDS: BLOOD SUGAR DIAGNOSTIC STRIP TEST SCH ×4 (05:52→21:00)
[2017-06-09] MEDS: INSULIN LISPRO 100 UNITS/ML SUBCUT SCH ×4 (05:52→22:24)
[2017-06-09] MEDS: GABAPENTIN 400MG CAPSULE PO SCH ×3 (05:57→22:30)
[2017-06-09] MEDS: METOCLOPRAMIDE HCL 10MG TABLET PO SCH ×3 (05:58→22:00)
[2017-06-09] MEDS: MORPHINE SULFATE 30MG TABLET SR PO SCH ×3 (05:58→20:40)
[2017-06-09 06:07] LABS: CHLORIDE 103 mEq/L (98-107)
[2017-06-09 06:19] LABS: CARBON DIOXIDE 26 mEq/L (21-32)
[2017-06-09] MEDS: FUROSEMIDE 40MG TABLET PO SCH ×2 (06:40→17:03)
[2017-06-09] MEDS: HYDRALAZINE HCL 10MG TABLET PO SCH ×3 (06:40→22:32)
[2017-06-09 08:19] VITALS: BP 141/65
[2017-06-09] MEDS: LIDOCAINE 5% PATCH TOP SCH (09:00)
[2017-06-09] MEDS: VITAMINS A AND D OINT TUBE TOP SCH ×3 (09:20→17:56)
[2017-06-09] MEDS: PANTOT AC/MIN OIL/PET HY-PHL OINT 52.5GM (AQUAPHOR) TOP SCH ×2 (09:21→22:33)
[2017-06-09] MEDS ORDERED: CYANOCOBALAMIN 1000MCG/ML VIAL IM NR (09:30)
[2017-06-09] MEDS: ASPIRIN 325MG EC TABLET PO SCH (10:42)
[2017-06-09] MEDS: ALLOPURINOL 300 MG TABLET PO SCH (10:42)
[2017-06-09] MEDS: LOSARTAN POTASSIUM 25 MG TABLET PO SCH (10:42)
[2017-06-09] MEDS: DOCUSATE SODIUM 250MG CAPSULE PO SCH ×2 (10:42→17:03)
[2017-06-09] MEDS: ISOSORBIDE DINITRATE 20MG TABLET PO SCH ×2 (10:43→22:32)
[2017-06-09] MEDS: FAMOTIDINE 20MG TABLET PO SCH ×2 (10:43→21:00)
[2017-06-09] MEDS: POTASSIUM CHLORIDE 20MEQ TABLET SR PO SCH ×2 (10:44→17:03)
[2017-06-09] MEDS: CARVEDILOL 6.25 MG TABLET PO SCH ×2 (10:44→22:31)
[2017-06-09] MEDS: ENOXAPARIN 40MG/0.4ML SYR SUBCUT SCH ×2 (10:45→21:00)
[2017-06-09 11:15] VITALS: BP 124/60
[2017-06-09 14:00] VITALS: BP 120/64
[2017-06-09 15:15] VITALS: BP 138/67
[2017-06-09 16:50] LABS: PLATELET ESTIMATE NORMAL
[2017-06-09 17:15] VITALS: BP 147/69
[2017-06-09 20:41] VITALS: BP 142/79
[2017-06-09] MEDS: POLYETHYLENE GLYCOL 3350 (17GM) 1 DOSE PACK PO SCH (21:00)
[2017-06-09] MEDS: ATORVASTATIN CALCIUM 20MG TABLET PO SCH (22:30)
[2017-06-10] MEDS: GABAPENTIN 400MG CAPSULE PO SCH ×2 (05:48→14:13)
[2017-06-10] MEDS: MORPHINE SULFATE 30MG TABLET SR PO SCH ×2 (05:49→14:14)
[2017-06-10] MEDS: HYDRALAZINE HCL 10MG TABLET PO SCH ×2 (05:53→14:00)
[2017-06-10] MEDS: BLOOD SUGAR DIAGNOSTIC STRIP TEST SCH ×2 (05:59→11:15)
[2017-06-10] MEDS: METOCLOPRAMIDE HCL 10MG TABLET PO SCH ×2 (05:59→14:13)
[2017-06-10] MEDS: FUROSEMIDE 40MG TABLET PO SCH (06:40)
[2017-06-10] MEDS: INSULIN LISPRO 100 UNITS/ML SUBCUT SCH ×2 (06:40→13:03)
[2017-06-10] MEDS: HYDROMORPHONE HCL/PF 2MG/ML CPJ IV PRN ×2 (08:08→12:56)
[2017-06-10 08:23] VITALS: BP 154/80
[2017-06-10] MEDS: VITAMINS A AND D OINT TUBE TOP SCH ×2 (08:39→13:04)
[2017-06-10] MEDS: LIDOCAINE 5% PATCH TOP SCH (09:00)
[2017-06-10 09:15] VITALS: BP 145/70
[2017-06-10] MEDS: DOCUSATE SODIUM 250MG CAPSULE PO SCH (09:16)
[2017-06-10] MEDS: ASPIRIN 325MG EC TABLET PO SCH (09:16)
[2017-06-10] MEDS: LOSARTAN POTASSIUM 25 MG TABLET PO SCH (09:16)
[2017-06-10] MEDS: CARVEDILOL 6.25 MG TABLET PO SCH (09:16)
[2017-06-10] MEDS: POTASSIUM CHLORIDE 20MEQ TABLET SR PO SCH (09:16)
[2017-06-10] MEDS: FAMOTIDINE 20MG TABLET PO SCH (09:17)
[2017-06-10] MEDS: ALLOPURINOL 300 MG TABLET PO SCH (09:17)
[2017-06-10] MEDS: ISOSORBIDE DINITRATE 20MG TABLET PO SCH (09:17)
[2017-06-10] MEDS: ENOXAPARIN 40MG/0.4ML SYR SUBCUT SCH (09:17)
[2017-06-10 12:35] VITALS: BP 152/70
[2017-06-10] MEDS: PANTOT AC/MIN OIL/PET HY-PHL OINT 52.5GM (AQUAPHOR) TOP SCH (13:04)
[2017-06-10 14:10] VITALS: BP 144/71
[2017-06-10 14:18] VITALS: BP 144/71
== END 2017-06-10 15:52 | disposition home health service (06) | DRG 292 ==
PROVIDERS: ADMIT Physical Medicine & Rehabilitation Spinal Cord Injury Medicine; ATTEND Internal Medicine
PROC: 0HBRXZZ Excision of Toe Nail, External Approach (ICD-10-PCS; principal; 2017-05-28)
PROC: 0HBRXZZ Excision of Toe Nail, External Approach (ICD-10-PCS; 2017-05-28)
PROC: 0HBRXZZ Excision of Toe Nail, External Approach (ICD-10-PCS; 2017-05-28)
PROC: 0HBRXZZ Excision of Toe Nail, External Approach (ICD-10-PCS; 2017-05-28)
PROC: 0HBRXZZ Excision of Toe Nail, External Approach (ICD-10-PCS; 2017-05-28)
PROC: 0HBRXZZ Excision of Toe Nail, External Approach (ICD-10-PCS; 2017-05-28)
PROC: 0HBRXZZ Excision of Toe Nail, External Approach (ICD-10-PCS; 2017-05-28)
PROC: 0HBRXZZ Excision of Toe Nail, External Approach (ICD-10-PCS; 2017-05-28)
PROC: 0HBRXZZ Excision of Toe Nail, External Approach (ICD-10-PCS; 2017-05-28)
PROC: 0HBRXZZ Excision of Toe Nail, External Approach (ICD-10-PCS; 2017-05-28)
DX: I11.0 Hypertensive heart disease with heart failure (principal); E44.0 Moderate protein-calorie malnutrition; I42.9 Cardiomyopathy, unspecified; E66.01 Morbid (severe) obesity due to excess calories; L89.619 Pressure ulcer of right heel, unspecified stage; E11.9 Type 2 diabetes mellitus without complications; D64.9 Anemia, unspecified; B35.3 Tinea pedis; Z68.45 Body mass index [BMI] 70 or greater, adult; L97.929 Non-pressure chronic ulcer of unspecified part of left lower leg with unspecified severity; L97.919 Non-pressure chronic ulcer of unspecified part of right lower leg with unspecified severity; I50.33 Acute on chronic diastolic (congestive) heart failure; M19.90 Unspecified osteoarthritis, unspecified site; M10.9 Gout, unspecified; L60.3 Nail dystrophy; L60.0 Ingrowing nail; K59.00 Constipation, unspecified; J44.9 Chronic obstructive pulmonary disease, unspecified; I89.0 Lymphedema, not elsewhere classified; I25.10 Atherosclerotic heart disease of native coronary artery without angina pectoris; G89.4 Chronic pain syndrome; G47.33 Obstructive sleep apnea (adult) (pediatric); E87.6 Hypokalemia; E78.5 Hyperlipidemia, unspecified; E78.00 Pure hypercholesterolemia, unspecified; R26.9 Unspecified abnormalities of gait and mobility; M54.5 Low back pain; N40.1 Benign prostatic hyperplasia with lower urinary tract symptoms; I95.1 Orthostatic hypotension; F32.9 Major depressive disorder, single episode, unspecified; F06.31 Mood disorder due to known physiological condition with depressive features; Z91.19 Patient's noncompliance with other medical treatment and regimen; Z79.4 Long term (current) use of insulin; Z79.82 Long term (current) use of aspirin; Z79.899 Other long term (current) drug therapy; Z91.11 Patient's noncompliance with dietary regimen
CPT/HCPCS: 36415; 80048; 80053; 82270; 82306; 82607; 82728; 82746; 82962; 83540; 83550; 83735; 84100; 84134; 84153; 84443; 84630; 85025; 93005; 93970; 94660; 97110; 97116; 97150; 97162; 97167; 97530; 97535; A6261; C1893; J1170; J1650; J1815; J1940; J2405; J3420; J7620; J8597; Q0162; A5200